=== PATIENT | female | born 1955 | race Caucasian/White ===

== ENCOUNTER → 2017-05-29 19:00 | Outpatient (CLI) | payer BC | END | disposition home or self-care (01) | LOC: D.MAMMO 11:45 | DX: Z12.31 Encounter for screening mammogram for malignant neoplasm of breast (principal) ==

== ENCOUNTER → 2017-06-25 17:44 | Outpatient (CLI) | payer BC | END | disposition home or self-care (01) | LOC: D.MAMMO 14:00 | DX: R92.8 Other abnormal and inconclusive findings on diagnostic imaging of breast (principal) ==

== ENCOUNTER 2018-03-31 08:05 | Inpatient (IN) | payer BC ==
[~2018-03-31] VITALS: Ht 172.7 cm; Wt 126.4 kg
[2018-03-31] VITALS (17 sets, daily range): BP systolic 73–112; BP diastolic 43–88
[2018-03-31] MEDS ORDERED: ZESTRIL20 MG PO (08:13)
[2018-03-31 09:21] LABS: APPEARANCE SL CLDY (CLEAR); BILIRUBIN NEGATIVE (NEGATIVE); COLOR YELLOW (YELLOW); GLUCOSE NEGATIVE (NEGATIVE); KETONE NEGATIVE (NEGATIVE); NITRITE NEGATIVE (NEGATIVE); PROTEIN 1+ mg/dL (NEGATIVE); UROBILINOGEN NORMAL (NORMAL)
[2018-03-31 09:22] LABS: BACTERIA MANY /hpf (NONE SEEN); EPITHELIAL CELLS 0-5 /hpf (0-5); MUCUS <1+ /lpf (NONE SEEN); RED CELLS - URINE 0-5 /hpf (0-5)
[2018-03-31 09:29] LABS: BASOPHILS 0.4 % (0-2); EOSINOPHILS 0 % (0-7); HEMATOCRIT 54.3 % (36.0-48.0); HEMOGLOBIN 19.3 g/dL (12-16); IMMATURE GRANULOCYTES 0.2 % (0-5); LYMPHOCYTES 18.2 % (15-50); MCH 32.6 pg (26.0-34.0); MCHC 35.5 g/dL (31.0-37.0); MCV 91.7 fL (80.0-100.0); MEAN PLATELET VOLUME 10.4 fL (7.4-10.4); MONOCYTES 7.6 % (2-11); NEUTROPHILS 73.6 % (40-80); PLATELET COUNT 320 10x3/uL (130-400); RBC 5.92 10x6/uL (4.00-5.40); RDW 13.4 % (11.5-14.5); WBC 8.9 10x3/uL (4.8-10.8)
[2018-03-31 09:41] LABS: ALBUMIN 2.7 g/dL (3.4-5.0); ALKALINE PHOSPHATASE 51 U/L (46-116); ALT (SGPT) 36 U/L (10-68); BILIRUBIN - TOTAL 0.38 mg/dL (0.2-1.3); CALC OSMOLALITY 273 mosm/kg (275-300); CALCIUM 8.5 mg/dL (8.5-10.1); CARBON DIOXIDE 24.7 mmol/L (21.0-32.0); CHLORIDE - SERUM 90 mmol/L (98-107); CREATININE - SERUM 2.9 mg/dL (0.6-1.3); GLUCOSE 217 mg/dL (74-106); PROTEIN - SERUM 6.5 g/dL (6.4-8.2); SODIUM 130 mmol/L (136-145); UREA NITROGEN 30 mg/dL (7-18); eGFR NON AFRICAN AMERICAN 17 mL/min (90-120)
[2018-03-31 09:44] LABS: APTT 24.7 SECONDS (22.8-39.4); INR 1.1 (0.85-1.17); PROTIME 13.7 SECONDS (11.6-15.0)
[2018-03-31 09:56] LABS: CKMB 2.1 U/L (0.0-3.6); CREATINE KINASE 226 UL (21-215)
[2018-03-31 09:59] LABS: TROPONIN-I 0.438 ng/mL (0.000-0.060)
[2018-03-31 20:11] LABS: CKMB 4.3 U/L (0.0-3.6); CREATINE KINASE 270 UL (21-215)
[2018-03-31 20:15] LABS: TROPONIN-I 0.312 ng/mL (0.000-0.060)
--- NOTE | 2018-03-31 20:34 | MORECARE ---
CASE MANAGEMENT DISCHARGE SUMMARY PATIENT: MANFRED BARRERA UNIT: [id number] ADM DATE: 03/31/18 AGE: 62 : 55 SEX: F ROOM/BED: D.2313 AUTHOR: JOSE PETERSON PHYSICIAN: REFERRING PHYSICIAN: DUANE CRAWFORD MD DATE OF SERVICE: 03/31/18 Discharge Plan Patient Name: MANFRED BARRERA Facility: [facility]:[place] : 1955 Planned Disposition: Anticipated Discharge Date: Discharge Date: Expected LOS: Initial Reviewer: [email or web address] Initial Review Date: 03/31/2018 Generated: 03/31/18 9:33 pm Comments DCP- Discharge Planning Updated by [email or web address]: Codi Crabtree on 03/31/18 7:[address] CM attempted to complete d/c intake assessment but nursing is currently with patient. CM will return at a later time. CM will continue to follow and assist as needed with discharge planning / needs. Patient Name: MANFRED BARRERA Page [id number] at 2034 All edits/amendments must be made on the electronic document DICTATION DATE: 03/31/182032 FNP: SANIA 03/31/182032 RPT#: [id number] DC DATE: STATUS: ADM IN [facility] [address] [place] [address] END OF REPORT
[2018-04-01] VITALS (25 sets, daily range): BP systolic 73–120; BP diastolic 45–90; Ht 172.7 cm; Wt 126.4 kg
[2018-04-01 05:35] LABS: BASOPHILS 0.2 % (0-2); EOSINOPHILS 0 % (0-7); HEMATOCRIT 55.5 % (36.0-48.0); HEMOGLOBIN 19.5 g/dL (12-16); IMMATURE GRANULOCYTES 0.3 % (0-5); MCHC 35.1 g/dL (31.0-37.0); MCV 91.1 fL (80.0-100.0); MEAN PLATELET VOLUME 10.9 fL (7.4-10.4); MONOCYTES 6.8 % (2-11); NEUTROPHILS 80.7 % (40-80); PLATELET COUNT 323 10x3/uL (130-400); RBC 6.09 10x6/uL (4.00-5.40); RDW 13.4 % (11.5-14.5)
[2018-04-01 05:36] LABS: WBC 19.1 10x3/uL (4.8-10.8)
[2018-04-01 05:37] LABS: CALCIUM 7.2 mg/dL (8.5-10.1); CARBON DIOXIDE 19.7 mmol/L (21.0-32.0); CREATININE - SERUM 2.9 mg/dL (0.6-1.3)
[2018-04-01 05:41] LABS: POTASSIUM - SERUM 2.7 mmol/L (3.5-5.1)
[2018-04-01 13:30] LABS: ALKALINE PHOSPHATASE 41 U/L (46-116); BILIRUBIN - TOTAL 0.34 mg/dL (0.2-1.3); CALC OSMOLALITY 275 mosm/kg (275-300); CARBON DIOXIDE 19.8 mmol/L (21.0-32.0); CHLORIDE - SERUM 94 mmol/L (98-107); CKMB 47.1 U/L (0.0-3.6); CREATININE - SERUM 2.8 mg/dL (0.6-1.3); GLUCOSE 191 mg/dL (74-106); SODIUM 129 mmol/L (136-145); UREA NITROGEN 47 mg/dL (7-18); eGFR NON AFRICAN AMERICAN 18 mL/min (90-120)
[2018-04-01 13:31] LABS: ALBUMIN 1.9 g/dL (3.4-5.0); ALT (SGPT) 56 U/L (10-68); CREATINE KINASE 1670 UL (21-215); POTASSIUM - SERUM 3.6 mmol/L (3.5-5.1); PROTEIN - SERUM 4.6 g/dL (6.4-8.2); TROPONIN-I 0.098 ng/mL (0.000-0.060)
[2018-04-01 13:34] LABS: CALCIUM 6.2 mg/dL (8.5-10.1)
--- NOTE | 2018-04-01 17:12 | MORECARE ---
CASE MANAGEMENT DISCHARGE SUMMARY PATIENT: MANFRED BARRERA UNIT: [id number] ADM DATE: 03/31/18 AGE: 62 : 55 SEX: F ROOM/BED: D.2313 AUTHOR: JOSE PETERSON PHYSICIAN: REFERRING PHYSICIAN: DUANE CRAWFORD MD DATE OF SERVICE: 04/01/18 Discharge Plan Patient Name: MANFRED BARRERA Facility: [facility]:[place] : 1955 Planned Disposition: Home Anticipated Discharge Date: Discharge Date: Expected LOS: Initial Reviewer: [email or web address] Initial Review Date: 04/01/2018 Generated: 04/01/18 6:11 pm Comments DCP- Discharge Planning Updated by [email or web address]: Codi Crabtree on 03/31/18 7:[address] CM attempted to complete d/c intake assessment but nursing is currently with patient. CM will return at a later time. CM will continue to follow and assist as needed with discharge planning / needs. DCPIA - Discharge Planning Initial Assessment Updated by [email or web address]: Codi Crabtree on 04/01/18 5:08 pm * Is the patient Alert and Oriented? Yes * How many steps to enter\exit or inside your home? * PCP POOJA DELANEY * Pharmacy [facility] * Preadmission Environment Home with Family * ADLs Independent * Equipment None * List name and contact numbers for known caregivers / representatives who currently or will assist patient after discharge: DEDE BARRERA - [facility] [phone], * Verbal permission to speak to the caregivers and representatives has been obtained from the patient. Yes * Community resources currently utilized None * Additional services required to return to the preadmission environment? No * Can the patient safely return to the preadmission environment? Yes * Has this patient been hospitalized within the prior 30 days at any hospital? No Last DP export: 03/31/18 7:34 p Patient Name: MANFRED BARRERA Page [id number] at 1712 All edits/amendments must be made on the electronic document DICTATION DATE: 02/21/19 1711 CARBON FURNACE OPERATOR: SANIA 04/01/181710 RPT#: [id number] DC DATE: STATUS: ADM IN [facility] [address] [place] [address] END OF REPORT
--- NOTE | 2018-04-01 17:20 | MORECARE ---
CASE MANAGEMENT DISCHARGE SUMMARY PATIENT: MANFRED BARRERA UNIT: [id number] ADM DATE: 03/31/18 AGE: 62 : 55 SEX: F ROOM/BED: D.2313 AUTHOR: KRISTEN,DOC PHYSICIAN: REFERRING PHYSICIAN: DUANE CRAWFORD MD DATE OF SERVICE: 04/01/18 Discharge Plan Patient Name: MANFRED BARRERA Facility: [facility]:[place] : 1955 Planned Disposition: Home Anticipated Discharge Date: Discharge Date: Expected LOS: Initial Reviewer: [email or web address] Initial Review Date: 04/01/2018 Generated: 04/01/18 6:20 pm Comments DCP- Discharge Planning Updated by [email or web address]: Codi Crabtree on 04/01/18 4:[address] Patient Name: MANFRED BARRERA Admission Status: ER Accout number: [id number] Admission Date: 03-31-2018 : 1955 Admission Diagnosis: Attending: DUANE SMITH Current LOS: 1 Anticipated DC Date: Planned Disposition: Home Primary Insurance: [employer] Discharge Planning Comments: CM met with patient and spouse (Dede) at bedside after obtaining verbal consent. Patient states that she lives at home with her spouse and plans on returning home upon discharge. Patient denies any use of medical equipment or home nikolas services prior to admission. Patient uncertain of any discharge needs at this time. CM will continue to follow and assist as needed with discharge planning/ needs. Track Mechanic: Codi Crabtree DCP- Discharge Planning Updated by [email or web address]: Codi Crabtree on 03/31/18 7:[address] CM attempted to complete d/c intake assessment but nursing is currently with patient. CM will return at a later time. CM will continue to follow and assist as needed with discharge planning / needs. DCPIA - Discharge Planning Initial Assessment Updated by [email or web address]: Codi Crabtree on 04/01/18 5:08 pm * Is the patient Alert and Oriented? Yes * How many steps to enter\exit or inside your home? * PCP POOJA DELANEY * Pharmacy [facility] * Preadmission Environment Home with Family * ADLs Independent * Equipment None * List name and contact numbers for known caregivers / representatives who currently or will assist patient after discharge: DEDE BARRERA - - [phone], * Verbal permission to speak to the caregivers and representatives has been obtained from the patient. Yes * Community resources currently utilized None * Additional services required to return to the preadmission environment? No * Can the patient safely return to the preadmission environment? Yes * Has this patient been hospitalized within the prior 30 days at any hospital? No Last DP export: 04/01/18 4:11 p Patient Name: MANFRED BARRERA Page [id number] at 1720 All edits/amendments must be made on the electronic document DICTATION DATE: 04/01/181718 SIZER HAND: SANIA 04/01/181718 RPT#: [id number] DC DATE: STATUS: ADM IN [facility] [address] [place] [address] END OF REPORT
[2018-04-02] VITALS (25 sets, daily range): BP systolic 102–165; BP diastolic 45–95
[2018-04-02 04:46] LABS: LYMPHOCYTES 10.6 % (15-50); MCH 32.1 pg (26.0-34.0); MCHC 36.3 g/dL (31.0-37.0); MEAN PLATELET VOLUME 9.4 fL (7.4-10.4); NEUTROPHILS 82.7 % (40-80); RDW 13.5 % (11.5-14.5); WBC 15.6 10x3/uL (4.8-10.8)
[2018-04-02 04:49] LABS: HEMATOCRIT 36.1 % (36.0-48.0); HEMOGLOBIN 13.1 g/dL (12-16); MCV 88.5 fL (80.0-100.0); PLATELET COUNT 220 10x3/uL (130-400); RBC 4.08 10x6/uL (4.00-5.40)
[2018-04-02 04:53] LABS: CREATININE - URINE 105.8 mg/dL (30-125); POTASSIUM - URINE 48.3 MMOL/L (12.0-62.0); PRO/CRE RATIO URINE 0.6 mg/g; PROTEIN - URINE 60.4 mg/dL (0.0-11.9)
[2018-04-02 05:31] LABS: ALBUMIN 2.1 g/dL (3.4-5.0); ALKALINE PHOSPHATASE 42 U/L (46-116); BILIRUBIN - TOTAL 0.52 mg/dL (0.2-1.3); CHLORIDE - SERUM 88 mmol/L (98-107); CKMB 149.2 U/L (0.0-3.6); MAGNESIUM - SERUM 1.2 mg/dL (1.8-2.4); PHOSPHOROUS 2.8 mg/dL (2.5-4.9); POTASSIUM - SERUM 3.2 mmol/L (3.5-5.1); PRO BNP 63 pg/mL (0-125); PROTEIN - SERUM 4.7 g/dL (6.4-8.2); SODIUM 124 mmol/L (136-145); UREA NITROGEN 40 mg/dL (7-18)
[2018-04-02 06:25] LABS: ALT (SGPT) 76 U/L (10-68); CALC OSMOLALITY 260 mosm/kg (275-300); CARBON DIOXIDE 29.4 mmol/L (21.0-32.0); CREATININE - SERUM 1.4 mg/dL (0.6-1.3); GLUCOSE 122 mg/dL (74-106); eGFR NON AFRICAN AMERICAN 40 mL/min (90-120)
[2018-04-02 06:26] LABS: CALCIUM 6.1 mg/dL (8.5-10.1)
[2018-04-02 06:33] LABS: CREATINE KINASE 9026 UL (21-215)
[2018-04-03] VITALS (26 sets, daily range): BP systolic 107–159; BP diastolic 45–109
[2018-04-03 04:37] LABS: BASOPHILS 0.1 % (0-2); EOSINOPHILS 0 % (0-7); HEMATOCRIT 31.7 % (36.0-48.0); IMMATURE GRANULOCYTES 0.3 % (0-5); MCH 31.4 pg (26.0-34.0); MCHC 34.7 g/dL (31.0-37.0); MEAN PLATELET VOLUME 9.6 fL (7.4-10.4); MONOCYTES 6.9 % (2-11); NEUTROPHILS 84.7 % (40-80); PLATELET COUNT 185 10x3/uL (130-400); RDW 13.2 % (11.5-14.5); WBC 12.4 10x3/uL (4.8-10.8)
[2018-04-03 04:44] LABS: MCV 90.6 fL (80.0-100.0)
[2018-04-03 05:16] LABS: ALBUMIN 2.3 g/dL (3.4-5.0); ALKALINE PHOSPHATASE 43 U/L (46-116); BILIRUBIN - TOTAL 0.59 mg/dL (0.2-1.3); CARBON DIOXIDE 30.8 mmol/L (21.0-32.0); CHLORIDE - SERUM 98 mmol/L (98-107); CKMB 153.8 U/L (0.0-3.6); GLUCOSE 104 mg/dL (74-106); MAGNESIUM - SERUM 1.7 mg/dL (1.8-2.4); POTASSIUM - SERUM 3.8 mmol/L (3.5-5.1); PRO BNP 711 pg/mL (0-125); PROTEIN - SERUM 5.1 g/dL (6.4-8.2); SODIUM 134 mmol/L (136-145)
[2018-04-03 05:17] LABS: ALT (SGPT) 160 U/L (10-68); CALC OSMOLALITY 268 mosm/kg (275-300); CALCIUM 6.6 mg/dL (8.5-10.1); CREATINE KINASE 23615 UL (21-215); CREATININE - SERUM 0.8 mg/dL (0.6-1.3); PHOSPHOROUS 1.4 mg/dL (2.5-4.9); UREA NITROGEN 14 mg/dL (7-18); eGFR NON AFRICAN AMERICAN 77 mL/min (90-120)
[2018-04-04] VITALS (12 sets, daily range): BP systolic 133–162; BP diastolic 76–109
[2018-04-04 03:03] LABS: BASOPHILS 0.1 % (0-2); EOSINOPHILS 0.1 % (0-7); HEMATOCRIT 29.9 % (36.0-48.0); HEMOGLOBIN 10.1 g/dL (12-16); IMMATURE GRANULOCYTES 1.1 % (0-5); LYMPHOCYTES 9.1 % (15-50); MCH 31.6 pg (26.0-34.0); MCHC 33.8 g/dL (31.0-37.0); MCV 93.4 fL (80.0-100.0); MEAN PLATELET VOLUME 9.5 fL (7.4-10.4); MONOCYTES 7.5 % (2-11); NEUTROPHILS 82.1 % (40-80); PLATELET COUNT 204 10x3/uL (130-400); RDW 13.4 % (11.5-14.5); WBC 14.2 10x3/uL (4.8-10.8)
[2018-04-04 03:36] LABS: ALBUMIN 2.1 g/dL (3.4-5.0); ALKALINE PHOSPHATASE 44 U/L (46-116); ALT (SGPT) 187 U/L (10-68); BILIRUBIN - TOTAL 0.68 mg/dL (0.2-1.3); CALC OSMOLALITY 263 mosm/kg (275-300); CARBON DIOXIDE 25.5 mmol/L (21.0-32.0); CHLORIDE - SERUM 99 mmol/L (98-107); CKMB 62.9 U/L (0.0-3.6); CREATINE KINASE 22915 UL (21-215); CREATININE - SERUM 0.6 mg/dL (0.6-1.3); GLUCOSE 118 mg/dL (74-106); MAGNESIUM - SERUM 1.8 mg/dL (1.8-2.4); PHOSPHOROUS 1.5 mg/dL (2.5-4.9); POTASSIUM - SERUM 3.7 mmol/L (3.5-5.1); PROTEIN - SERUM 5.4 g/dL (6.4-8.2); SODIUM 132 mmol/L (136-145); UREA NITROGEN 8 mg/dL (7-18); VANCOMYCIN - RANDOM 2.4 ug/mL (10.0-20.0); eGFR NON AFRICAN AMERICAN > 90 mL/min (90-120)
[2018-04-05] VITALS: BP 136/79
[2018-04-05 04:00] VITALS: BP 141/80
[2018-04-05 05:05] LABS: BASOPHILS 0.1 % (0-2); EOSINOPHILS 0.6 % (0-7); HEMATOCRIT 29.3 % (36.0-48.0); HEMOGLOBIN 9.7 g/dL (12-16); IMMATURE GRANULOCYTES 2.3 % (0-5); LYMPHOCYTES 8.8 % (15-50); MCH 31.4 pg (26.0-34.0); MCHC 33.1 g/dL (31.0-37.0); MCV 94.8 fL (80.0-100.0); MEAN PLATELET VOLUME 9.6 fL (7.4-10.4); NEUTROPHILS 78.2 % (40-80); RBC 3.09 10x6/uL (4.00-5.40); RDW 13.9 % (11.5-14.5); WBC 15.4 10x3/uL (4.8-10.8)
[2018-04-05 05:12] LABS: PLATELET COUNT 294 10x3/uL (130-400)
[2018-04-05 05:36] LABS: ALBUMIN 1.9 g/dL (3.4-5.0); ALKALINE PHOSPHATASE 53 U/L (46-116); ALT (SGPT) 160 U/L (10-68); BILIRUBIN - TOTAL 0.74 mg/dL (0.2-1.3); CALC OSMOLALITY 263 mosm/kg (275-300); CALCIUM 7.4 mg/dL (8.5-10.1); CHLORIDE - SERUM 100 mmol/L (98-107); CKMB 17.2 U/L (0.0-3.6); CREATININE - SERUM 0.6 mg/dL (0.6-1.3); GLUCOSE 91 mg/dL (74-106); POTASSIUM - SERUM 3.5 mmol/L (3.5-5.1); PROTEIN - SERUM 5.4 g/dL (6.4-8.2); SODIUM 133 mmol/L (136-145); UREA NITROGEN 7 mg/dL (7-18); eGFR NON AFRICAN AMERICAN > 90 mL/min (90-120)
[2018-04-05 05:45] LABS: CREATINE KINASE 13107 UL (21-215)
[2018-04-05 08:23] VITALS: BP 154/84
[2018-04-05 12:16] VITALS: BP 150/85
[2018-04-05 15:08] VITALS: BP 167/81
[2018-04-05 20:31] VITALS: BP 186/81
[2018-04-06 00:47] VITALS: BP 180/84
[2018-04-06 04:54] VITALS: BP 155/85
[2018-04-06 06:34] LABS: BASOPHILS 0.3 % (0-2); EOSINOPHILS 1.7 % (0-7); HEMATOCRIT 28.9 % (36.0-48.0); HEMOGLOBIN 9.5 g/dL (12-16); IMMATURE GRANULOCYTES 4.9 % (0-5); LYMPHOCYTES 7.4 % (15-50); MCHC 32.9 g/dL (31.0-37.0); MCV 94.4 fL (80.0-100.0); MEAN PLATELET VOLUME 9.3 fL (7.4-10.4); MONOCYTES 14.2 % (2-11); NEUTROPHILS 71.5 % (40-80); RBC 3.06 10x6/uL (4.00-5.40); RDW 13.8 % (11.5-14.5); WBC 14.7 10x3/uL (4.8-10.8)
[2018-04-06 06:43] LABS: PLATELET COUNT 358 10x3/uL (130-400)
[2018-04-06 07:09] LABS: ALBUMIN 1.8 g/dL (3.4-5.0); ALKALINE PHOSPHATASE 67 U/L (46-116); ALT (SGPT) 135 U/L (10-68); BILIRUBIN - TOTAL 0.58 mg/dL (0.2-1.3); CALC OSMOLALITY 265 mosm/kg (275-300); CALCIUM 7.8 mg/dL (8.5-10.1); CARBON DIOXIDE 25.9 mmol/L (21.0-32.0); CHLORIDE - SERUM 100 mmol/L (98-107); CKMB 8.6 U/L (0.0-3.6); CREATININE - SERUM 0.5 mg/dL (0.6-1.3); GLUCOSE 98 mg/dL (74-106); POTASSIUM - SERUM 3.3 mmol/L (3.5-5.1); PROTEIN - SERUM 5.4 g/dL (6.4-8.2); SODIUM 134 mmol/L (136-145); UREA NITROGEN 7 mg/dL (7-18); eGFR NON AFRICAN AMERICAN > 90 mL/min (90-120)
[2018-04-06 08:53] LABS: CREATINE KINASE 7322 UL (21-215)
[2018-04-06 09:23] VITALS: BP 158/92
--- NOTE | 2018-04-06 11:18 | EC ---
PATIENT:MANFRED BARRERA DATE OF SERVICE: 03/31/18 SEX: F MEDICAL RECORD: [id number] DATE OF : 55 LOCATION:D.MS [address]221 AGE OF PATIENT: 62 ADMISSION DATE: 03/31/18 REFERRING PHYSICIAN: INTERPRETING PHYSICIAN: DENIS UBTLER MD ECHOCARDIOGRAM REPORT ECHO CHARGES 4 ECHO COMPLETE Date: 03/31/18 CLINICAL DIAGNOSIS: ELEVATE TROPNIN ECHOCARDIOGRAPHIC MEASUREMENTS (adult normal given) AC root (d.<3.7cm) 2.8 cm LV Septum d (<1.2 cm> 1.2 cm Valve Excursion 1.4 cm LV Septum (systole) 1.5 cm Left Atria (s.<4.0cm> 3.0 cm LVPW d(<1.2cm) 1.2 cm RV (d.<2.3cm) 1.9 cm LVPW (sytole) 1.6 cm LV diastole(<5.6CM) 4.2 cm MV E-F(>70mm/sec) cm LV systole 2.3 cm LVOT Diameter 1.8 cm MV exc.(>10mm) cm Est.ejection fraction (50-75%) % DOPPLER: LVIT cm/sec A 66 cm/sec E 44 cm/sec LA cm/sec RVSP 15.5 mmHg LVOT 84 cm/sec AOP1/2T m/s Asc. Ao 101 cm/sec RVOT 78 cm/sec RA cm/sec PA 86 cm/sec AV Gradient Peak 4.1 mmHg AV Mean 2.6 mmHg AV Area 2.2 cm MV Gradient Peak 2.3 mmHg MV Mean 1.3 mmHg MV Area cm COMMENTS: Care Manager: Amelia TAPIA Chemistry Technician: 1 Dr. Butler TAPE# PACS Pericardial Effusion N DATE OF SERVICE: 03/31/2018 FINDINGS: 1. Left ventricular chamber size is within normal limits. Left ventricular systolic function is normal. Overall ejection fraction estimated at 55% to 60%. 2. Left atrium, right atrium, and right ventricular chamber sizes are within normal limits. 3. Valvular structures have normal structure and motion. 4. Doppler interrogation reveals no significant valvular insufficiency or stenosis. ECHOCARDIOGRAM REPORT [id number] MANFRED BARRERA 5. No evidence of pericardial effusion or left ventricular thrombus. TRANSINT:[id number] Voice Confirmation ID: [id number] DOCUMENT ID: [id number] DENIS BUTLER MD at 1118 CC: [id number] DICTATION DATE: 04/01/18857 SUPERVISOR CHLORINE LIQUEFACTION: 04/01/18 0929 ADM IN [facility] [address] [place] [id number]
--- NOTE | 2018-04-06 11:18 | CN ---
PATIENT NAME:MANFRED BARRERA MEDICAL RECORD: [id number] : 55 LOCATION:D.MS [place] ADMIT DATE: 03/31/18 ACCOUNT: [id number] CONSULTING PHYSICIAN: DENIS LIANG MD REFERRING PHYSICIAN: DUANE CRAWFORD MD DATE OF CONSULTATION: 03/31/2018 DIAGNOSES: 1. Increased troponin. 2. Flu. 3. Urosepsis. 4. Nufxe-ya-mnrvtrm renal insufficiency. 5. Dehydration. HISTORY OF PRESENT ILLNESS: presents with flu-like symptomatology, renal failure, and has a mildly elevated troponin. She denies any cardiac symptomatology. No chest pain or chest discomfort. She does have shortness of breath and overall flu-like symptoms for the past week. She also appears to be markedly dehydrated. PHYSICAL EXAMINATION: GENERAL APPEARANCE: Well-nourished, well-developed, appears stated age. Level of distress, comfortable. PSYCHIATRIC: Mental status, alert, normal affect. Orientation, oriented to time, place and person. EYES: Lids and conjunctiva, noninjected. No discharge, no pallor. ENT: Lips, teeth, gums, normal dentition. Oropharynx, no cyanosis, no pallor. NECK: Carotid arteries, bilateral normal upstroke, no bruits, no thrills. JUGULAR VEINS: No jugular venous pressure or distention. CERVICAL LYMPH NODES: Nontender, nonenlarged. THYROID: Not enlarged. Nontender. No nodules. LUNGS: Respiratory effort, unlabored. CHEST: Normal curvature. No thoracic deformity. No chest wall tenderness. Percussion, resonant. Auscultation, clear. No wheezes, no rales, no rhonchi. CARDIOVASCULAR: Precordial exam, nondisplaced. No heaves or pericardial thrills. Rate and rhythm, regular. Heart sounds, normal S1, normal S2. No S3, no gallop, no rub. Systolic murmur, not heard. Diastolic murmur, not heard. EXTREMITIES: No cyanosis, no edema. Peripheral pulses, full and equal in all extremities, except as noted. No bruits appreciated. ABDOMEN: Soft, nondistended. Normal aorta. No bruit. Nontender. No masses. Liver, nontender, no hepatomegaly. Spleen, nontender, no splenomegaly. MUSCULOSKELETAL: No joint tenderness. No joint swelling. No erythema. NEUROLOGICAL: Normal gait, normal strength, normal tone. SKIN: Warm and dry. OVERALL IMPRESSION: The elevated troponin is most likely secondary to her dehydration and renal insufficiency. This is most likely not pure cardiac in nature. Her EKG is with no changes. No cardiac history and no cardiac symptomatology. We will get an echocardiogram, but no other cardiac workup treatment should be necessary. TRANSINT:[id number] Voice Confirmation ID: [id number] DOCUMENT ID: [id number] CONSULT REPORT [id number] MANFRED BARRERA JEFFREY MD at 1118 CC: [id number] DICTATION DATE: 03/31/18 1239 OUTSOLE HANDLER: 03/31/18 1442 ADM IN [place] [address] [place] [address]
[2018-04-06 14:21] VITALS: BP 166/81
[2018-04-06 17:18] VITALS: BP 169/86
[2018-04-06 20:00] VITALS: BP 166/69
[2018-04-07 04:00] VITALS: BP 163/78
[2018-04-07 06:13] LABS: BASOPHILS 0.3 % (0-2); EOSINOPHILS 3.1 % (0-7); HEMATOCRIT 29.7 % (36.0-48.0); HEMOGLOBIN 9.7 g/dL (12-16); IMMATURE GRANULOCYTES 5.4 % (0-5); LYMPHOCYTES 12.1 % (15-50); MCH 31.1 pg (26.0-34.0); MCHC 32.7 g/dL (31.0-37.0); MCV 95.2 fL (80.0-100.0); MEAN PLATELET VOLUME 9.2 fL (7.4-10.4); MONOCYTES 13.9 % (2-11); NEUTROPHILS 65.2 % (40-80); PLATELET COUNT 410 10x3/uL (130-400); RBC 3.12 10x6/uL (4.00-5.40); RDW 14.1 % (11.5-14.5); WBC 13.4 10x3/uL (4.8-10.8)
[2018-04-07 06:38] LABS: ALBUMIN 1.9 g/dL (3.4-5.0); ALKALINE PHOSPHATASE 76 U/L (46-116); ALT (SGPT) 121 U/L (10-68); BILIRUBIN - TOTAL 0.61 mg/dL (0.2-1.3); CALC OSMOLALITY 266 mosm/kg (275-300); CALCIUM 8.5 mg/dL (8.5-10.1); CARBON DIOXIDE 27.8 mmol/L (21.0-32.0); CHLORIDE - SERUM 101 mmol/L (98-107); CKMB 4.9 U/L (0.0-3.6); GLUCOSE 85 mg/dL (74-106); PROTEIN - SERUM 5.8 g/dL (6.4-8.2); SODIUM 135 mmol/L (136-145); UREA NITROGEN 8 mg/dL (7-18)
[2018-04-07 06:48] LABS: CREATINE KINASE 3871 UL (21-215); CREATININE - SERUM 0.7 mg/dL (0.6-1.3); POTASSIUM - SERUM 3.9 mmol/L (3.5-5.1); eGFR NON AFRICAN AMERICAN 90 mL/min (90-120)
[2018-04-07 08:20] VITALS: BP 165/91
[2018-04-07 12:42] VITALS: BP 145/92
[2018-04-07 20:41] VITALS: BP 145/79
[2018-04-08 00:33] VITALS: BP 152/77
[2018-04-08 05:10] LABS: BASOPHILS 0.3 % (0-2); HEMATOCRIT 29.3 % (36.0-48.0); HEMOGLOBIN 9.5 g/dL (12-16); IMMATURE GRANULOCYTES 4.2 % (0-5); MCH 30.5 pg (26.0-34.0); MCHC 32.4 g/dL (31.0-37.0); MCV 94.2 fL (80.0-100.0); MEAN PLATELET VOLUME 8.8 fL (7.4-10.4); MONOCYTES 13.6 % (2-11); NEUTROPHILS 62.9 % (40-80); PLATELET COUNT 430 10x3/uL (130-400); RBC 3.11 10x6/uL (4.00-5.40); RDW 13.8 % (11.5-14.5)
[2018-04-08 05:33] LABS: ALKALINE PHOSPHATASE 90 U/L (46-116); ALT (SGPT) 97 U/L (10-68); BILIRUBIN - TOTAL 0.51 mg/dL (0.2-1.3); CALC OSMOLALITY 270 mosm/kg (275-300); CALCIUM 8.7 mg/dL (8.5-10.1); CARBON DIOXIDE 26.1 mmol/L (21.0-32.0); CHLORIDE - SERUM 101 mmol/L (98-107); CKMB 2.7 U/L (0.0-3.6); GLUCOSE 98 mg/dL (74-106); SODIUM 136 mmol/L (136-145); UREA NITROGEN 10 mg/dL (7-18)
[2018-04-08 05:39] LABS: CREATINE KINASE 2768 UL (21-215); CREATININE - SERUM 0.5 mg/dL (0.6-1.3); eGFR NON AFRICAN AMERICAN > 90 mL/min (90-120)
[2018-04-08 05:52] VITALS: BP 148/80
[2018-04-08 09:04] VITALS: BP 177/87
--- NOTE | 2018-04-08 09:24 | MORECARE ---
CASE MANAGEMENT DISCHARGE SUMMARY PATIENT: MANFRED BARRERA UNIT: [id number] ADM DATE: 03/31/18 AGE: 62 : 55 SEX: F ROOM/BED: D.2217 AUTHOR: KRISTEN,DOC PHYSICIAN: REFERRING PHYSICIAN: DUANE CRAWFORD MD DATE OF SERVICE: 04/08/18 Discharge Plan Patient Name: MANFRED BARRERA Facility: [facility]:[place] : 1955 Planned Disposition: Home Anticipated Discharge Date: Discharge Date: Expected LOS: Initial Reviewer: [email or web address] Initial Review Date: 04/01/2018 Generated: 04/08/18 10:24 am Comments DCP- Discharge Planning Updated by [email or web address]: Codi Crabtree on 04/01/18 4:[address] Patient Name: MANFRED BARRERA Admission Status: ER Accout number: [id number] Admission Date: 03-31-2018 : 1955 Admission Diagnosis: Attending: DUANE SMITH Current LOS: 1 Anticipated DC Date: Planned Disposition: Home Primary Insurance: [email or web address] Discharge Planning Comments: CM met with patient and spouse (Dede) at bedside after obtaining verbal consent. Patient states that she lives at home with her spouse and plans on returning home upon discharge. Patient denies any use of medical equipment or home nikolas services prior to admission. Patient uncertain of any discharge needs at this time. CM will continue to follow and assist as needed with discharge planning/ needs. Magnetic Healer: Codi Crabtree DCP- Discharge Planning Updated by [email or web address]: Codi Crabtree on 03/31/18 7:[address] CM attempted to complete d/c intake assessment but nursing is currently with patient. CM will return at a later time. CM will continue to follow and assist as needed with discharge planning / needs. DCPIA - Discharge Planning Initial Assessment Updated by [email or web address]: Codi Crabtree on 04/01/18 5:08 pm * Is the patient Alert and Oriented? Yes * How many steps to enter\exit or inside your home? * PCP POOJA DELANEY * Pharmacy [facility] * Preadmission Environment Home with Family * ADLs Independent * Equipment None * List name and contact numbers for known caregivers / representatives who currently or will assist patient after discharge: DEDE BARRERA - - [phone], * Verbal permission to speak to the caregivers and representatives has been obtained from the patient. Yes * Community resources currently utilized None * Additional services required to return to the preadmission environment? No * Can the patient safely return to the preadmission environment? Yes * Has this patient been hospitalized within the prior 30 days at any hospital? No Last DP export: 04/01/18 4:20 p Patient Name: MANFRED BARRERA Page [id number] at 0924 All edits/amendments must be made on the electronic document DICTATION DATE: 04/08/18923 PIG CASTING MACHINE OPERATOR: SANIA 04/08/18923 RPT#: [id number] DC DATE: STATUS: ADM IN [facility] [address] [place] [address] END OF REPORT
--- NOTE | 2018-04-08 09:38 | MORECARE ---
CASE MANAGEMENT DISCHARGE SUMMARY PATIENT: MANFRED BARRERA UNIT: [id number] ADM DATE: 03/31/18 AGE: 62 : 55 SEX: F ROOM/BED: D.2217 AUTHOR: KRISTEN,DOC PHYSICIAN: REFERRING PHYSICIAN: DUANE CRAWFORD MD DATE OF SERVICE: 04/08/18 Discharge Plan Patient Name: MANFRED BARRERA Facility: [facility]:[place] : 1955 Planned Disposition: Home Anticipated Discharge Date: Discharge Date: Expected LOS: Initial Reviewer: [email or web address] Initial Review Date: 04/01/2018 Generated: 04/08/18 10:38 am Comments DCP- Discharge Planning Updated by [email or web address]: Tina Collado on 04/08/18 8:[address] Patient would like to go to inpatient rehab, [facility] I spoke with Katarzyna. CM to follow and assist with DC planning DCP- Discharge Planning Updated by [email or web address]: Codi Crabtree on 04/01/18 4:[address] Patient Name: MANFRED BARRERA Admission Status: ER Accout number: [id number] Admission Date: 03-31-2018 : 1955 Admission Diagnosis: Attending: DUANE SMITH Current LOS: 1 Anticipated DC Date: Planned Disposition: Home Primary Insurance: [employer] O Discharge Planning Comments: CM met with patient and spouse (Dede) at bedside after obtaining verbal consent. Patient states that she lives at home with her spouse and plans on returning home upon discharge. Patient denies any use of medical equipment or home nikolas services prior to admission. Patient uncertain of any discharge needs at this time. CM will continue to follow and assist as needed with discharge planning/ needs. Plant Director: Codi Crabtree DCP- Discharge Planning Updated by [email or web address]: Codi Crabtree on 03/31/18 7:[address] CM attempted to complete d/c intake assessment but nursing is currently with patient. CM will return at a later time. CM will continue to follow and assist as needed with discharge planning / needs. DCPIA - Discharge Planning Initial Assessment Updated by [email or web address]: Codi Crabtree on 04/01/18 5:08 pm * Is the patient Alert and Oriented? Yes * How many steps to enter\exit or inside your home? * PCP POOJA DELANEY * Pharmacy [facility] * Preadmission Environment Home with Family * ADLs Independent * Equipment None * List name and contact numbers for known caregivers / representatives who currently or will assist patient after discharge: DEDE BARRERA - [facility]- [phone], * Verbal permission to speak to the caregivers and representatives has been obtained from the patient. Yes * Community resources currently utilized None * Additional services required to return to the preadmission environment? No * Can the patient safely return to the preadmission environment? Yes * Has this patient been hospitalized within the prior 30 days at any hospital? No External Providers External Provider: [facility] Contact Date: Service Request Date: Service Type: Resolution: Reviewer: Comments: Last DP export: 04/08/18 8:24 a Patient Name: MANFRED BARRERA Page 74201 at 0938 All edits/amendments must be made on the electronic document DICTATION DATE: 04/08/18937 WOODEN TANK ERECTOR: SANIA 04/08/18937 RPT#: [id number] DC DATE: STATUS: ADM IN [facility] [address] [place] [address] END OF REPORT
--- NOTE | 2018-04-08 09:41 | OP ---
PATIENT NAME: MANFRED BARRERA MEDICAL RECORD: [id number] :55 LOCATION:D.MS [address]oney2217 ADMISSION DATE:03/31/18 SURGEON: MATEO CORTEZ MD DATE OF OPERATION: 04/01/2018 PREOPERATIVE DIAGNOSES: 1. Need for IV access. 2. Hypotension. 3. Septic shock. 4. Influenza. POSTOPERATIVE DIAGNOSES: 1. Need for IV access. 2. Hypotension. 3. Septic shock. 4. Influenza. PROCEDURE: Right IJ triple-lumen central venous line placement. SURGEON: Mateo Cortez MD REPORT OF PROCEDURE: The patient's right neck was prepped and draped in sterile fashion. A 3 cc of 1% lidocaine with epinephrine was infused into the surrounding tissues. Using ultrasound guidance, a needle was used to cannulate the right internal jugular vein. A guidewire was advanced with ease. Over this wire, a dilator was placed followed by the triple lumen catheter. The catheter aspirated nonpulsatile dark blood and flushed easily in all 3 ports. This was sutured into place with 3-0 silk ties and dressed appropriately. COMPLICATIONS: None. CONDITION: Fair. ANESTHESIA: Local. BLOOD LOSS: Minimal. Procedure was done in the ICU at the bedside. TRANSINT:[id number] Voice Confirmation ID: [id number] DOCUMENT ID: [id number] MATEO CORTEZ MD at 0941 CC: [id number] DICTATION DATE: 04/01/18 1123 SALES NEGOTIATOR: 04/01/18 1140 [place] [address]
[2018-04-08] MEDS ORDERED: GABAPENTIN100 MG PO (12:50)
[2018-04-08] MEDS ORDERED: ULTRAM50 MG PO (12:53)
[2018-04-08] MEDS ORDERED: KEFLEX500 MG PO (12:53)
[2018-04-08 13:33] VITALS: BP 155/92
--- NOTE | 2018-04-08 16:56 | MORECARE ---
CASE MANAGEMENT DISCHARGE SUMMARY PATIENT: MANFRED BARRERA UNIT: [id number] ADM DATE: 03/31/18 AGE: 62 : 55 SEX: F ROOM/BED: D.2217 AUTHOR: JOSE PETERSON PHYSICIAN: REFERRING PHYSICIAN: DUANE CRAWFORD MD DATE OF SERVICE: 04/08/18 Discharge Plan Patient Name: MANFRED BARRERA Facility: [facility]:[place] : 1955 Planned Disposition: Home Anticipated Discharge Date: Discharge Date: 04/08/2018 Expected LOS: Initial Reviewer: [email or web address] Initial Review Date: 04/01/2018 Generated: 04/08/18 5:56 pm Comments DCP- Discharge Planning Updated by [email or web address]: Tina Collado on 04/08/18 3:[address] Patient discharged to [facility] rehab today DCP- Discharge Planning Updated by [email or web address]: Tina Collado on 04/08/18 8:[address] Patient would like to go to inpatient rehab, [facility] I spoke with Katarzyna. CM to follow and assist with DC planning DCP- Discharge Planning Updated by [email or web address]: Codi Crabtree on 04/01/18 4:[address] Patient Name: MANFRED BARRERA Admission Status: ER Accout number: [id number] Admission Date: 03-31-2018 : 1955 Admission Diagnosis: Attending: DUANE SMITH Current LOS: 1 Anticipated DC Date: Planned Disposition: Home Primary Insurance: [employer] O Discharge Planning Comments: CM met with patient and spouse (Dede) at bedside after obtaining verbal consent. Patient states that she lives at home with her spouse and plans on returning home upon discharge. Patient denies any use of medical equipment or home nikolas services prior to admission. Patient uncertain of any discharge needs at this time. CM will continue to follow and assist as needed with discharge planning/ needs. Applications Coordinator: Codi Crabtree DCP- Discharge Planning Updated by [email or web address]: Codi Crabtree on 03/31/18 7:[address] CM attempted to complete d/c intake assessment but nursing is currently with patient. CM will return at a later time. CM will continue to follow and assist as needed with discharge planning / needs. DCPIA - Discharge Planning Initial Assessment Updated by [email or web address]: Codi Crabtree on 04/01/18 5:08 pm * Is the patient Alert and Oriented? Yes * How many steps to enter\exit or inside your home? * PCP POOJA DELANEY * Pharmacy [facility] * Preadmission Environment Home with Family * ADLs Independent * Equipment None * List name and contact numbers for known caregivers / representatives who currently or will assist patient after discharge: DEDE BARRERA - - [phone], * Verbal permission to speak to the caregivers and representatives has been obtained from the patient. Yes * Community resources currently utilized None * Additional services required to return to the preadmission environment? No * Can the patient safely return to the preadmission environment? Yes * Has this patient been hospitalized within the prior 30 days at any hospital? No Last DP export: 04/08/18 8:38 a Patient Name: MANFRED BARRERA Page [id number] at 1656 All edits/amendments must be made on the electronic document DICTATION DATE: 04/08/181654 PROPERTY CLERK: SANIA 04/08/181654 RPT#: [id number] DC DATE:04/08/18 STATUS: DIS IN [address] [address] END OF REPORT
== END 2018-04-08 16:42 | DRG 871 ==
LOC: D.ER 08:05 → D.EDHOLD 10:13 → D.ICU 10:13 → D.MS 04-04 17:37
PROVIDERS: Emergency Medicine; Internal Medicine; ADMIT Family Medicine Adult Medicine
PROC: 05HM33Z Insertion of Infusion Device into Right Internal Jugular Vein, Percutaneous Approach (ICD-10-PCS; principal; 2018-04-01)
PROC: 05HY33Z Insertion of Infusion Device into Upper Vein, Percutaneous Approach (ICD-10-PCS; 2018-04-07)
DX: A41.9 Sepsis, unspecified organism (principal); R65.21 Severe sepsis with septic shock; J11.00 Influenza due to unidentified influenza virus with unspecified type of pneumonia; N17.0 Acute kidney failure with tubular necrosis; N39.0 Urinary tract infection, site not specified; E87.1 Hypo-osmolality and hyponatremia; N17.9 Acute kidney failure, unspecified; E87.2 Acidosis; M62.82 Rhabdomyolysis; J11.1 Influenza due to unidentified influenza virus with other respiratory manifestations; E87.6 Hypokalemia; E86.0 Dehydration; I10 Essential (primary) hypertension; E11.9 Type 2 diabetes mellitus without complications; I95.9 Hypotension, unspecified